=== PATIENT | male | born 1985 | race Caucasian/White ===

== ENCOUNTER 2017-09-17 07:27 | Emergency (ER) | payer SELFPAY ==
[~2017-09-17] VITALS: Ht 167.6 cm; Wt 90.7 kg
[2017-09-17 07:27] VITALS: BP_SYST 126
[2017-09-17 07:49] LABS: BASOPHILS # (AUTO) 0.1 K/uL (0.0-0.2); BASOPHILS % (AUTO) 1.7 % (0.0-2.0); EOSINOPHILS # (AUTO) 0.1 K/uL (0.0-0.4); EOSINOPHILS % (AUTO) 1.7 % (0.0-4.0); HEMATOCRIT 45.5 % (36-54); HEMOGLOBIN 15.6 g/dL (14.0-18.0); LYMPHOCYTES # (AUTO) 1.7 K/uL (1.0-5.5); MEAN CORPUSCULAR HEMOGLOBIN 32 pg (27-31); MEAN CORPUSCULAR HGB CONC 34 % (32-36); MEAN CORPUSCULAR VOLUME 92 fL (79.0-98.0); MONOCYTES # (AUTO) 0.6 K/uL (0.0-1.0); NEUTROPHILS # (AUTO) 5.3 K/uL (1.8-7.7); NEUTROPHILS % (AUTO) 66.6 % (40.0-70.0); PLATELET COUNT (AUTO) 391 K/uL (130-430); RED BLOOD CELL COUNT(AUTO) 4.95 MIL/uL (4.2-6.2); RED CELL DISTRIBUTION WIDTH 12.7 % (9.0-15.0); WHITE BLOOD COUNT (AUTO) 7.9 K/uL (4.8-10.8)
[2017-09-17 08:18] LABS: BARBITURATE, URINE NEGATIVE (NEG <=200); BENZODIAZEPINE, URINE NEGATIVE (NEG <=150); CANNABINOID, URINE NEGATIVE (NEG <=50); COCAINE, URINE NEGATIVE (NEG <=150); METHAMPHETAMINES SCREEN,URINE POSITIVE (NEG <=500); OPIATE, URINE NEGATIVE (NEG <=100); PHENCYCLIDINE SCREEN,URINE NEGATIVE (NEG <=25); UR TRICYCLIC ANTIDEPRESSANTS NEGATIVE (NEG <=300); URINE AMPHETAMINE POSITIVE (NEG <=500); URINE METHADONE NEGATIVE (NEG <=200); URINE OXYCODONE SCREEN NEGATIVE (NEG <=100); URINE PROPOXYPHENE SCREEN NEGATIVE (NEG <=300)
[2017-09-17 08:19] LABS: CALCIUM 8.9 mg/dL (8.4-11.0); CREATININE 0.98 mg/dL (0.55-1.30)
[2017-09-17 08:23] LABS: ALBUMIN 4.2 g/dL (3.4-4.8); TOTAL BILIRUBIN 0.7 mg/dL (0.0-1.0)
[2017-09-17 08:25] LABS: PROTHROMBIN TIME 10.1 SECS (9.5-12.5)
[2017-09-17 08:45] LABS: CKMB RELATIVE INDEX 1.1 (0.0-2.9); CREATINE KINASE MB 3.8 ng/mL (0-3.6)
[2017-09-17] MEDS ORDERED: FAMOTIDINE PF 20 MG/2 ML VIAL ONE (14:58)
== END 2017-09-17 08:41 | disposition home or self-care (01) ==
LOC: SED 07:27
DX: F19.10 Other psychoactive substance abuse, uncomplicated (principal)
CPT/HCPCS: 36415; 71045; 80053; 80307; 82550; 82553; 84484; 85025; 85610; 85730; 93005; 99285; G0482; J3490

== ENCOUNTER 2017-11-20 21:00 | Emergency (ER) | payer SELFPAY ==
[~2017-11-20] VITALS: Ht 180.3 cm; Wt 99.8 kg
[2017-11-20 21:02] VITALS: BP_SYST 152
[2017-11-20 22:38] VITALS: BP_SYST 148
== END 2017-11-20 22:38 ==
LOC: SED 21:00
DX: R06.02 Shortness of breath (principal); R53.1 Weakness
CPT/HCPCS: 99283

== ENCOUNTER 2017-12-26 05:57 | Emergency (ER) | payer SELFPAY ==
[~2017-12-26] VITALS: Ht 180.3 cm; Wt 90.7 kg
[2017-12-26 06:02] VITALS: BP_SYST 124
[2017-12-26] MEDS ORDERED: ACETAMINOPHEN 500 MG TABLET PO ONE (06:45)
[2017-12-26 06:50] VITALS: BP_SYST 120
== END 2017-12-26 06:50 ==
LOC: SED 05:57
DX: R51 Headache (principal); R06.02 Shortness of breath; F17.210 Nicotine dependence, cigarettes, uncomplicated; Z71.6 Tobacco abuse counseling
CPT/HCPCS: 99283

== ENCOUNTER 2020-08-19 18:36 | Emergency (ER) | payer SELFPAY ==
[~2020-08-19] VITALS: Ht 180.3 cm; Wt 99.8 kg
[2020-08-19 18:36] VITALS: BP_SYST 160
== END 2020-08-19 19:10 | disposition left against medical advice (07) ==
LOC: SED 18:36
DX: F41.0 Panic disorder [episodic paroxysmal anxiety] (principal)
CPT/HCPCS: 99283